=== PATIENT | female | born 1960 | race Caucasian/White ===

== ENCOUNTER 2018-01-28 07:33 | Day surgery (SDC) | payer BC ==
[2018-01-25 15:20] VITALS: BMI 24.0
[2018-01-28] MEDS ORDERED: PROPOFOL 20 ML ONE ×2 (07:46)
[2018-01-28] MEDS ORDERED: LIDOCAINE HCL/PF 2% SDV 5ML VIAL ONE (07:47)
[2018-01-28 08:02] VITALS: TEMP 98
[2018-01-28] MEDS ORDERED: GLYCOPYRROLATE 0.2 MG/1 ML VIAL ONE (09:03)
[2018-01-28 09:58] VITALS: BP 135/77; PULSE 66
--- NOTE | 2018-01-29 15:57 | PATH ---
Surgical Pathology Report Patient Name: LAURA SPRINGER [facility]. Rec. #: [id number] /Age/Gender: 1960 (Age: 57) / F Account: [id number] Location: [facility] Taken: 01/28/2018 Received: 01/28/2018 Reported: 01/29/2018 Physicians: Salomon Glynn M.D. Specimen(s) Received RECTOSIGMOID Clinical History Rule out colon cancer Postoperative diagnosis: Diverticulosis Final Diagnosis RECTOSIGMOID, BIOPSY: COLONIC MUCOSA SHOWING MILD SURFACE HYPERPLASTIC CHANGE. Electronically Signed Lisa Rider M.D. Gross Description Received in formalin labeled "rectosigmoid," is a 0.4 cm. in greatest dimension espinosa soft tissue fragment which is submitted in toto in one cassette. [facility]/01/28/2018
== END 2018-01-28 09:45 | disposition home or self-care (01) ==
LOC: FASU-ENDO 07:33
PROVIDERS: ATTEND Internal Medicine Gastroenterology
PROC: 0DBN8ZX Excision of Sigmoid Colon, Via Natural or Artificial Opening Endoscopic, Diagnostic (ICD-10-PCS; principal; 2018-01-28 08:57)
DX: Z12.11 Encounter for screening for malignant neoplasm of colon (principal); D12.7 Benign neoplasm of rectosigmoid junction; K57.30 Diverticulosis of large intestine without perforation or abscess without bleeding
CPT/HCPCS: 88305-TC